=== PATIENT | female | born 1955 | race Two or more races ===

== ENCOUNTER 2019-10-31 12:02 | Outpatient (CLI) | payer OTHER ==
[~2019-10-31 12:02] MED LIST: COUMADIN5 MG PO; LANOXIN0.25 MG PO; LASIX20 MG PO; LIPITOR80 MG PO; [UNRECOGNIZED DRUG - OTHER]
== END 2019-10-31 14:05 | disposition home or self-care (01) ==
LOC: OFIC 805 12:02
PROVIDERS: ATTEND Otolaryngology
DX: J34.89 Other specified disorders of nose and nasal sinuses (principal); R09.81 Nasal congestion; H61.23 Impacted cerumen, bilateral

== ENCOUNTER 2019-11-15 13:41 | Outpatient (CLI) | payer OTHER ==
[2019-11-15] MEDS ORDERED: LEVAQUIN500 MG PO (14:25)
[2019-11-15] MEDS ORDERED: NEILMED SINUS1 EAC1 NASAL (14:25)
== END 2019-11-15 14:00 | disposition home or self-care (01) ==
LOC: OFIC 805 13:41
PROVIDERS: ATTEND Otolaryngology
DX: J34.89 Other specified disorders of nose and nasal sinuses (principal); R09.81 Nasal congestion; J32.0 Chronic maxillary sinusitis; H61.23 Impacted cerumen, bilateral